=== PATIENT | female | born 1950 | race Caucasian/White ===

== ENCOUNTER → 2018-10-17 | Outpatient (CLI) | payer OTHER | LOC: FIMAGING 14:10 | PROVIDERS: ATTEND Orthopaedic Surgery | DX: M23.022 Cystic meniscus, posterior horn of medial meniscus, left knee (principal); G57.32 Lesion of lateral popliteal nerve, left lower limb; M71.22 Synovial cyst of popliteal space [Baker], left knee ==

== ENCOUNTER 2018-11-19 10:41 | Day surgery (SDC) | payer OTHER ==
[2018-11-19] MEDS ORDERED: LR 1,000 ML IV ONE (10:57)
[2018-11-19] MEDS ORDERED: BUPIVACAINE 0.5% 30 ML SDV ONE ×2 (11:05→12:16)
--- NOTE | 2018-11-19 11:11 | PDANEPAE ---
ANE History of Present Illness left foot tendon rupture and here for repair ANE Past Medical History - Cardiovascular History Hx Hypertension: Yes Hx Arrhythmias: No Hx Chest Pain: No Hx Coronary Artery / Peripheral Vascular Disease: No Hx CHF / Valvular Disease: No Hx Palpitations: No Cardiovascular History Comment: pcp monitors bp medications - Pulmonary History Hx COPD: No Hx Asthma/Reactive Airway Disease: No Hx Recent Upper Respiratory Infection: No Hx Oxygen in Use at Home: No Hx Sleep Apnea: No Sleep Apnea Screening Result - Last Documented: Negative - Neurologic History Hx Cerebrovascular Accident: No Hx Seizures: No Hx Dementia: No Neurologic History Comment: neuro stimulator placed in l3-4 - Endocrine History Hx Diabetes: No - Renal History Hx Renal Disorders: Yes Renal History Comment: hx of bladder lift. frequency continues - Liver History Hx Hepatic Disorders: No - Neurological & Psychiatric Hx Hx Neurological and Psychiatric Disorders: Yes Neurological / Psychiatric History Comment: insomnia. depression d/t pain - Cancer History Hx Cancer: Yes Cancer History Comment: basal cell on face checked every 6 months by campaign manager - Congenital Disorder History Hx Congenital Disorders: No - GI History Hx Gastrointestinal Disorders: Yes Gastrointestinal History Comment: constipation from anesthesia- uses colace prior to surgery. poss IBS - Other Health History Other Health History: none - Chronic Pain History Chronic Pain: Yes (left lateral tib/fib) - Surgical History Prior Surgeries: bilateral carpal tunnel surgeries with ernie last being 2017. neuro stimulator 09/2017. knee scope. left leg surgeries. bladder lift with mesh ANE Review of Systems Review of Systems: - Exercise capacity METS (RN): 4 METS ANE Patient History - Allergies Allergies/Adverse Reactions: No Known Allergies Allergy (Verified 11/11/18 11:20) - Home Medications Home Medications: Gabapentin [Neurontin 100 MG (*)] 100 mg PO HS PRN 11/11/18 [Last Taken Unknown] Herbals/Supplements -Info Only 1 ea PO DAILY 11/11/18 [Last Taken Unknown] Irbesartan [Avapro 150 mg (*)] 75 mg PO DAILY 11/11/18 [Last Taken Unknown] Melatonin [Melatonin 3 MG (*)] 9 mg PO HS 11/11/18 [Last Taken Unknown] traMADol [Ultram 50 mg (*)] 50 mg PO HS PRN 11/11/18 [Last Taken Unknown] Cholecalciferol Vit D3 [Vitamin D3 (*)] 1,000 units PO DAILY 11/14/18 [Last Taken Unknown] Cyanocobalamin [Vitamin B12 (*)] 1,000 mcg PO DAILY 11/14/18 [Last Taken Unknown ] Lidocaine [Lidoderm] 1 each TP DAILY 11/14/18 [Last Taken Unknown] - Smoking Hx Smoking Status: Never smoked - Family Anes Hx Family Hx Anesthesia Complications: none ANE Labs/Vital Signs - Vital Signs Height: 160.02 cm Weight: 77.111 kg ANE Physical Exam - Airway Neck exam: FROM Mallampati Score: Class 1 Mouth exam: normal dental/mouth exam - Pulmonary Pulmonary: no respiratory distress, no rales or rhonchi - Cardiovascular Cardiovascular: regular rate and rhythym, no murmur, rub, or gallop - ASA Status ASA Status: II ANE Anesthesia Plan Anesthesia Plan: GA with mask Total IV Anesthesia: Yes
[2018-11-19] MEDS ORDERED: MIDAZOLAM 2 MG/2 ML VIAL ONE (12:23)
--- NOTE | 2018-11-19 12:24 | PDHPUP ---
History & Physical Update H&P update statement: This history and physical update is based on an assessment of the patient which was completed after admission or registration (within 24 hours), but prior to the surgery/procedure. H&P update: H&P reviewed & patient examined, no change in patient's condition since H&P completed
[2018-11-19] MEDS ORDERED: MIDAZOLAM 2 MG/2 ML VIAL IVP ONE (12:31)
[2018-11-19] MEDS ORDERED: LR 1,000 ML IV SCH (12:31)
[2018-11-19] MEDS ORDERED: ACETAMINOPHEN 500 MG TAB PO ONE (12:31)
[2018-11-19] MEDS ORDERED: ceFAZolin 2 GM/DEXTROSE 100 ML IV ONE ×2 (12:31)
[2018-11-19] MEDS ORDERED: ACETAMINOPHEN 500 MG TAB ONE (12:33)
[2018-11-19] MEDS ORDERED: fentaNYL 100 MCG/2 ML INJ ONE ×2 (12:38→13:49)
[2018-11-19] MEDS ORDERED: PROPOFOL 200 MG/20 ML VIAL ONE (12:38)
[2018-11-19] MEDS ORDERED: ROPIVACAINE HCL 150 MG/30 ML INJ ONE (12:38)
[2018-11-19] MEDS ORDERED: LIDOCAINE 2% 100 MG/5 ML SYR ONE (12:38)
[2018-11-19] MEDS ORDERED: LIDOCAINE 2% 2 ML INJ ONE (12:38)
[2018-11-19] MEDS ORDERED: oxyCODONE IR 5 MG TAB PO PRN (14:12)
[2018-11-19] MEDS ORDERED: fentaNYL 100 MCG/2 ML INJ IVP PRN (14:12)
[2018-11-19] MEDS ORDERED: LR 500 ML IV PRN (14:12)
[2018-11-19] MEDS ORDERED: MEPERIDINE 25 MG/0.5 ML AMP IVP PRN (14:12)
[2018-11-19] MEDS ORDERED: PROMETHAZINE HCL 25 MG/ML INJ IVP PRN (14:12)
[2018-11-19] MEDS ORDERED: METOCLOPRAMIDE 10 MG/2 ML VIAL IVP PRN (14:12)
[2018-11-19] MEDS ORDERED: NALOXONE HCL 0.4 MG/ML INJ IVP PRN (14:12)
[2018-11-19] MEDS ORDERED: HYDROmorphONE/DILAUDID 1 MG/ML INJ IVP PRN (14:12)
--- NOTE | 2018-11-19 14:26 | POSTANESTH ---
Post Anesthetic Evaluation Cardiovascular Status: Normal, Stable Respiratory Status: Normal, Stable Level of Consciousness/Mental Status: Can Participate in Eval, Mildly Sleepy, Arousable Pain Control: Adequate, Prn Tx Ordered Nausea/Vomiting Control: Adequate, Prn Tx Ordered Complications Possibly Related to Anesthesia: None Noted
[2018-11-19] MEDS ORDERED: HYDROmorphONE/DILAUDID 1 MG/ML INJ ONE (14:56)
--- NOTE | 2018-11-19 15:08 | GOP ---
[f rep st] OPERATIVE REPORT DATE OF OPERATION: 11/19/2018 SURGEON: Mango Barrow MD LAMINATION MACHINE OPERATOR: Carlos Schultz MD ANESTHESIA: General with popliteal block for postop pain control. PREOPERATIVE DIAGNOSIS: Left peroneal nerve entrapment, peroneal nerve neuritis , and peroneal nerve pain. POSTOPERATIVE DIAGNOSIS: Left peroneal nerve entrapment, peroneal nerve neuritis, and peroneal nerve pain. PROCEDURE PERFORMED: 1. Left peroneal nerve decompression of common peroneal nerve, superficial peroneal nerve, and deep peroneal nerve revision. 2. Amnion wrap with Arthrex amnion, the amnion was medically necessary given the revision nature of this and the fact that she had formed copious amounts of scar tissue around the nerve at her 1st surgery causing the current problems. 3. Peroneal nerve repair of common peroneal nerve. 4. Injection of dexamethasone into the left knee. FINDINGS: Nerve had small laceration from previous surgery SPECIMENS: none ESTIMATED BLOOD LOSS: 10 mL. INDICATIONS: This is a female with some longstanding problems with her peroneal nerve with significant pain issues at the site of entrapment distally. She has had prior surgery. She had 1 surgery to decompress the peroneal nerve. No biologics were used in this case and her symptoms did recur. She had significant amounts of scarring evidenced by recurrent symptoms, MRI findings, and this was also confirmed at surgery. I discussed a revision surgery with her. I discussed the importance of the use of amnion wrap to help prevent scarring. I did feel this was medically necessary to prevent scar tissue from forming and thus recurrence of her symptoms. We discussed risks of footdrop, of complete nerve injury, of partial nerve injury, of continued pain, of worse pain, of neuritis, and of wound dehiscence, and need for more surgery. She elected to proceed. Informed consent was obtained and all questions were answered. She was marked preoperatively. DESCRIPTION OF PROCEDURE: She was taken to the operative suite, sterilely prepped and draped in the usual fashion. A time-out was performed verifying site, side, and location and there was agreement with the team. I injected her knee with a combination of 4 mg dexamethasone and 4 mL of 0.5% plain Marcaine at her request. A tourniquet was utilized, it was inflated. I made an incision along her old incision. Dissected down and released the fascia. There were significant amounts of scar. I carefully dissected using tenotomy scissors and opened up the scarring sheath and located the peroneal nerve. I was able to locate this proximally in more normal tissue and followed this distally. She had copious amounts of scarring of the nerve around the fibular head in about a 3 cm section. I released this carefully. There was a longitudinal split and nerve injury to the nerve just proximal to the fibular head. I believe this was there from the previous surgery. I then decompressed the nerve working distally and isolated the branch of the DP and the SP and then decompressed these. I then did a fasciectomy of a portion of the fascia near the fibular head. I used a 7-0 Prolene to close the epineurium of the nerve in the area where it was split. I then also removed a portion of the muscular attachment on the fibular head and then translated this more proximally to create a more muscular bed for the nerve to lay on. At this point , I felt I had the nerve decompressed adequately. I took the Arthrex amnion and cut this into 2 and laid this above and below the nerve with the appropriate side facing the nerve. I then placed one 7-0 Prolene stitch on each side to hold this together, but left this as a loose conduit for the nerve to travel through. I felt this would prevent scarring in the area where the nerve was most encased in scar. The tourniquet was released. Hemostasis obtained. She was closed with 2-0 Vicryl, 3-0 Stratafix, and Dermabond. She was taken to the PACU in stable condition. COMPLICATIONS: None. DRAINS: None. CONDITION: Stable. /[id number]/MODL MTDD
[2018-11-19] MEDS ORDERED: METOCLOPRAMIDE 10 MG/2 ML VIAL ONE (17:18)
[2018-11-19 17:49] VITALS: BP 137/66
== END 2018-11-19 17:50 | disposition home or self-care (01) ==
LOC: FSGY 10:41
PROVIDERS: ATTEND Orthopaedic Surgery
DX: G57.32 Lesion of lateral popliteal nerve, left lower limb (principal); I10 Essential (primary) hypertension
CPT/HCPCS: C9399; J1170; J2001; J2250; J2704; J2765; J2795; J3010